=== PATIENT | male | born 1945 | race Caucasian/White ===

== ENCOUNTER 2016-11-02 05:04 | Inpatient (IN) | payer OTHER ==
[2016-11-02] MEDS ORDERED: HYDROmorphONE/DILAUDID 1 MG/ML SYR IVP ONE ×2 (05:27→06:57)
[2016-11-02] MEDS ORDERED: ONDANSETRON 4 MG/2 ML VIAL IVP ONE (05:27)
[2016-11-02] MEDS ORDERED: NS 1,000 ML IV ONE ×2 (05:27→06:57)
--- NOTE | 2016-11-02 05:27 | CPEKG ---
Heart Rate: 58 RR Interval: 1034 P-R Interval: 180 QRSD Interval: 94 QT Interval: 472 QTC Interval: 464 P Wheeler: 39 QRS Wheeler: -41 T Wave Wheeler: 34 EKG Severity - ABNORMAL ECG - EKG Impression: SINUS RHYTHM EKG Impression: LEFT ANTERIOR FASCICULAR BLOCK EKG Impression: BORDERLINE T WAVE ABNORMALITIES Electronically Signed By: Dorcas Jara 02-Nov-2016 07:20:19
--- NOTE | 2016-11-02 05:32 | EDPHY ---
H & P Stated Complaint: abd pain-chest pain Time Seen by Provider: 11/02/16 05:13 HPI/ROS: HPI The patient presents with abdominal pain which began yesterday at about 430p while playing golf. He could not complete his golf game and went home. The pain started gradually and was diffuse throughout his abdomen. It was a pressure like sensation with bloating, it was associated with weakness and nausea. The pain improved at about 7-8 p.m. at night and he went to bed. He woke at about 230 this morning with continued pain which began to radiate upwards toward his chest. The pain is been constant ever since. He had a normal bowel movement last night. He has not had any dark or bloody stools, diarrhea or constipation. He has not had any fevers or chills, he does not have any sick contacts. He has been taking Advil approximately 400 mg a day for the last 1 month. He reports that he has had an unintentional weight loss over the last 1 month as well. He has no history of similar pain. REVIEW OF SYSTEMS Constitutional: No fever, no chills. Eyes: No discharge. ENT: No sore throat. Cardiovascular: No chest pain, no palpitations. Respiratory: No cough, no shortness of breath. Gastrointestinal: See HPI Genitourinary: No hematuria. Musculoskeletal: No back pain. Skin: No rashes. Neurological: No headache. 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: Father with Marfan's and AAA PHYSICAL General Appearance: Alert, no distress Eyes: Pupils equal and round no pallor or injection ENT, Mouth: Mucous membranes moist Respiratory: There are no retractions, lungs are clear to auscultation Cardiovascular: Regular rate and rhythm Gastrointestinal: Abdomen is soft with tenderness in the epigastrium with voluntary guarding Neurological: A&O, moves all extremities Skin: Warm and dry, no rashes Musculoskeletal: Neck is supple non tender Extremities: symmetrical, full range of motion Psychiatric: Patient is oriented X 3, there is no agitation Source: Patient Exam Limitations: No limitations - Personal History Current Tetanus Diphtheria and Acellular Pertussis (TDAP): Yes - Medical/Surgical History Hx Asthma: No Hx Chronic Respiratory Disease: No Hx Diabetes: No Hx Cardiac Disease: No Hx Renal Disease: No Hx Cirrhosis: No Hx Alcoholism: No Hx HIV/AIDS: No Hx Splenectomy or Spleen Trauma: No Other PMH: hypertension - Social History Smoking Status: Never smoked Constitutional: Initial Vital Signs Temperature (C) 36.3 C 11/02/16 05:08 Heart Rate 61 11/02/16 05:08 Respiratory Rate 20 11/02/16 05:08 Blood Pressure 133/90 H 11/02/16 05:08 O2 Sat (%) 94 11/02/16 05:08 O2 Delivery Mode Room Air Allergies/Adverse Reactions: No Allergies [NKDA] Allergy (Verified 11/02/16 05:06) Home Medications: Medication Instructions Recorded Hydrochlorothiazide [HCTZ (*)] 25 mg PO DAILY 01/26/16 Lovastatin 20 mg PO DAILY 01/26/16 Spironolactone [Aldactone 25 MG 25 mg PO DAILY 01/26/16 (*)] Cholecalciferol Vit D3 [Vitamin D3 2,000 units PO DAILY 11/02/16 2000 units tab (OTC)] Vitamin B Complex [B Complex] 1 each PO DAILY 11/02/16 Medical Decision Making - Diagnostics EKG Interpretation: EKG: Complete interpretation has been separately recorded in the [facility] archive. Summary impression: Left anterior fascicular block Imaging: Imaging Impressions Chest X-Ray 11/02/16 05:27 Impression: 1. Stable chest. 2. Query constipation CT chest abdomen pelvis with IV contrast demonstrates some inflammation surrounding the pancreas, otherwise normal, discussed with Dr. La of Radiology. Chest x-ray two views shows ectatic aorta, interpreted by me, radiology interpretation is pending. ED Course/Re-evaluation: 6:50 a.m.- The patient is feeling somewhat better after fluids and pain medication. Labs have revealed a markedly elevated lipase. His CT scan also show some inflammation surrounding the pancreas. The cause of his pancreatitis is unclear. He is not a heavy drinker, drinking approximately 1-2 drinks of alcohol a day normally. He is not on any new medications except for niacinamide. He has no history of hypertriglyceridemia. He did not have any gallstones on his CT scan. I have discussed the case with Dr. Ziggy Mchugh of the hospitalist service and we plan to admit him to a medical-surgical bed. Differential Diagnosis: This is a 70-year-old man with hypertension who presents from home with epigastric abdominal pain which is radiating upwards toward his chest present for the last 12 hours approximately. On exam, he is slightly hypertensive with tenderness of his epigastrium. Differential diagnosis includes aortic dissection, perforated gastric ulcer, gastritis, pancreatitis, cholecystitis. - Data Points Laboratory Results: Laboratory Results 11/02/16 05:25 11/02/16 05:25 11/02/16 11/02/16 05:25 05:25 WBC 11.92 10^3/uL H 10^3/uL (3.80-9.50) RBC 4.66 10^6/uL 10^6/uL (4.40-6.38) Hgb 14.4 g/dL g/dL (13.7-17.5) Hct 40.9 % % (40.0-51.0) MCV 87.8 fL fL (81.5-99.8) MCH 30.9 pg pg (27.9-34.1) MCHC 35.2 g/dL g/dL (32.4-36.7) RDW 12.6 % % (11.5-15.2) Plt Count 230 10^3/uL 10^3/uL (150-400) MPV 9.1 fL fL (8.7-11.7) Neut % (Auto) 69.6 % % (39.3-74.2) Lymph % (Auto) 16.1 % % (15.0-45.0) [place] % (Auto) 11.5 % % (4.5-13.0) Eos % (Auto) 1.9 % % (0.6-7.6) Baso % (Auto) 0.6 % % (0.3-1.7) Nucleat RBC Rel Count 0.0 % % (0.0-0.2) Absolute Neuts (auto) 8.30 10^3/uL H 10^3/uL (1.70-6.50) Absolute Lymphs (auto) 1.92 10^3/uL 10^3/uL (1.00-3.00) Absolute Monos (auto) 1.37 10^3/uL H 10^3/uL (0.30-0.80) Absolute Eos (auto) 0.23 10^3/uL 10^3/uL (0.03-0.40) Absolute Basos (auto) 0.07 10^3/uL 10^3/uL (0.02-0.10) Absolute Nucleated RBC 0.00 10^3/uL 10^3/uL (0-0.01) Immature Gran % 0.3 % % (0.0-1.1) Immature Gran # 0.03 10^3/uL 10^3/uL (0.00-0.10) Sodium 137 mEq/L mEq/L (134-144) Potassium 3.7 mEq/L mEq/L (3.5-5.2) Chloride 104 mEq/L mEq/L (97-110) Carbon Dioxide 24 mEq/l mEq/l (22-31) Anion Gap 9 mEq/L mEq/L (8-16) BUN 24 mg/dL H mg/dL (7-23) Creatinine 1.2 mg/dL mg/dL (0.7-1.3) Estimated GFR 60 Glucose 99 mg/dL mg/dL (70-100) Calcium 9.2 mg/dL mg/dL (8.5-10.4) Total Bilirubin 0.9 mg/dL mg/dL (0.1-1.4) Conjugated Bilirubin 0.4 mg/dL mg/dL (0.0-0.5) Unconjugated Bilirubin 0.5 mg/dL mg/dL (0.0-1.1) AST 55 IU/L IU/L (17-59) ALT 54 IU/L IU/L (21-72) Alkaline Phosphatase 59 IU/L IU/L (38-126) Troponin I < 0.012 ng/mL ng/mL (0-0.034) Total Protein 7.0 g/dL g/dL (6.3-8.2) Albumin 4.3 g/dL g/dL (3.5-5.0) Lipase > 67656.0 IU/L H IU/L (23-300) Medications Given: Discontinued Medications Hydromorphone HCl (Dilaudid) 0.5 mg IVP EDNOW ONE Stop: 11/02/16 05:28 Last Admin: 11/02/16 06:05 Dose: 0.5 mg Sodium Chloride (Ns) 1,000 mls @ 0 mls/hr IV ONCE ONE PRN Reason: Wide Open Stop: 11/02/16 05:28 Last Admin: 11/02/16 06:05 Dose: 1,000 mls Sodium Chloride (Ns) 1,000 mls @ 0 mls/hr IV ONCE ONE PRN Reason: Wide Open Stop: 11/02/16 06:58 Last Admin: 11/02/16 07:03 Dose: 1,000 mls Ondansetron HCl (Zofran) 4 mg IVP EDNOW ONE Stop: 11/02/16 05:28 Last Admin: 11/02/16 05:50 Dose: 4 mg Departure - Departure Disposition: [facility] Inpatient Acute Clinical Impression: Pancreatitis Condition: Fair
[2016-11-02 05:33] LABS: % IMMATURE GRANULYOCYTES 0.3 % (0.0-1.1); ABSOLUTE IMMATURE GRANULOCYTES 0.03 10^3/uL (0.00-0.10); ADD DIFF? NO; ADD MORPH? NO; ADD SCAN? NO; ATYPICAL LYMPHOCYTE FLAG 0 (0-99); FRAGMENT RBC FLAG 0 (0-99); HEMATOCRIT 40.9 % (40.0-51.0); HEMOGLOBIN 14.4 g/dL (13.7-17.5); LEFT SHIFT FLG 0 (0-99); LIPEMIA HEMOLYSIS FLAG 90 (0-99); MEAN CELL HEMOGLOBIN 30.9 pg (27.9-34.1); MEAN CELL HEMOGLOBIN CONCENTR. 35.2 g/dL (32.4-36.7); MEAN CELL VOLUME 87.8 fL (81.5-99.8); MEAN PLATELET VOLUME 9.1 fL (8.7-11.7); PLATELET CLUMPS FLAG 0 (0-99); PLATELET COUNT 230 10^3/uL (150-400); RED BLOOD CELL COUNT 4.66 10^6/uL (4.40-6.38); RED CELL DISTRIBUTION WIDTH 12.6 % (11.5-15.2)
[2016-11-02] MEDS ORDERED: IOPAMIDOL (ISOVUE-300) 100 ML BTL IV ONE (05:39)
[2016-11-02 05:49] LABS: ALANINE AMINOTRANSFERASE 54 IU/L (21-72); ALBUMIN 4.3 g/dL (3.5-5.0); ALKALINE PHOSPHATASE 59 IU/L (38-126); ANION GAP 9 mEq/L (8-16); ASPARTATE AMINOTRANSFERASE 55 IU/L (17-59); BILIRUBIN,TOTAL 0.9 mg/dL (0.1-1.4); BILIRUBIN-CONJUGATED 0.4 mg/dL (0.0-0.5); BILIRUBIN-UNCONJUGATED 0.5 mg/dL (0.0-1.1); CALCIUM 9.2 mg/dL (8.5-10.4); CARBON DIOXIDE 24 mEq/l (22-31); CHLORIDE 104 mEq/L (97-110); CREATININE 1.2 mg/dL (0.7-1.3); GLOMERULAR FILTRATION RATE 60; GLUCOSE 99 mg/dL (70-100); POTASSIUM 3.7 mEq/L (3.5-5.2); SODIUM 137 mEq/L (134-144)
[2016-11-02 06:01] LABS: TROPONIN I < 0.012 ng/mL (0-0.034)
--- NOTE | 2016-11-02 07:51 | PDGENHP ---
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 Pain started gradually yesterday. He played some golf when he felt tired. Around 5:00 p.m. he developed some mild dull epigastric generalized abdominal pain that did not radiate. Initially thought he was getting the stomach flu. He did not have much of an appetite but was eventually able to be dinner. He was then awoke in a from sleep with severe generalized abdominal pain which brought him to the emergency department for further evaluation. He denies any nausea vomiting or diarrhea. He has been losing weight over the past few months but is unable to quantify how much. He denies any fevers or chills. He endorses to drinking 1 oz of hard alcohol per night which she is on for many years. He denies any new medication, but does take supplements. Triglycerides were tested last month and found to be within normal range at 90. History Information - Allergies/Home Medication List Allergies/Adverse Reactions: No Allergies [NKDA] Allergy (Verified 11/02/16 05:06) Home Medications: Cardura 01/26/16 [Last Taken Unknown] Lovastatin 01/26/16 [Last Taken Unknown] Spironolactone-Hctz 25-25 Tab 01/26/16 [Last Taken Unknown] Cholecalciferol Vit D3 [Vitamin D3 2000 units tab (OTC)] 2,000 units PO DAILY [Last Taken Unknown] Vitamin B Complex [B Complex] 1 each PO DAILY 11/02/16 [Last Taken Unknown] I have personally reviewed and updated: family history, medical history, social history, surgical history - Past Medical History Additional medical history: basal cell carcinoma, BPH, hypertension, bradycardia , depression, peripheral neuropathy, retinal detachment, gastritis - Surgical History Additional surgical history: bilateral total knee arthroplasties, bilateral hernia repair, cervical fusion - Family History Additional family history: Marfan syndrome in his father - Social History Smoking Status: Never smoked Alcohol Use: Other (1-2 oz of hard alcohol per nights) Drug Use: None Review of Systems ROS: 10pt was reviewed & negative except for what was stated in HPI & below Physical Exam Temp Pulse Resp BP Pulse Ox 36.3 C 58 L 12 141/88 H 99 11/02/16 05:08 11/02/16 06:20 11/02/16 06:20 11/02/16 06:20 11/02/16 06:20 Constitutional: no apparent distress, appears nourished, not in pain Eyes: PERRL, anicteric sclera, EOMI Ears, Nose, Mouth, Throat: moist mucous membranes, hearing normal, ears appear normal, no oral mucosal ulcers Cardiovascular: regular rate and rhythym, no murmur, rub, or gallop, No edema Respiratory: no respiratory distress, no rales or rhonchi, clear to auscultation Gastrointestinal: normoactive bowel sounds, soft, non-tender abdomen, no palpable masses, No guarding, No rebound Genitourinary: no bladder fullness, no bladder tenderness Skin: warm, normal color, no rashes or abrasions, no fluctuance, no induration, No mottled Musculoskeletal: full muscle strength, no muscle tenderness, normal joint ROM, no joint effusions Neurologic: AAOx3, CN II-XII Intact, No facial droop Psychiatric: interacting appropriately, not anxious, not encephalopathic, thought process linear Lymph, Heme, Immunologic: no cervical LAD, no supraclavicular LAD Lab Data & Imaging Review 11/02/16 05:25 11/02/16 05:25 WBC 11.92 10^3/uL (3.80-9.50) H 11/02/16 05:25 RBC 4.66 10^6/uL (4.40-6.38) 11/02/16 05:25 Hgb 14.4 g/dL (13.7-17.5) 11/02/16 05:25 Hct 40.9 % (40.0-51.0) 11/02/16 05:25 MCV 87.8 fL (81.5-99.8) 11/02/16 05:25 MCH 30.9 pg (27.9-34.1) 11/02/16 05:25 MCHC 35.2 g/dL (32.4-36.7) 11/02/16 05:25 RDW 12.6 % (11.5-15.2) 11/02/16 05:25 Plt Count 230 10^3/uL (150-400) 11/02/16 05:25 MPV 9.1 fL (8.7-11.7) 11/02/16 05:25 Neut % (Auto) 69.6 % (39.3-74.2) 11/02/16 05:25 Lymph % (Auto) 16.1 % (15.0-45.0) 11/02/16 05:25 [place] % (Auto) 11.5 % (4.5-13.0) 11/02/16 05:25 Eos % (Auto) 1.9 % (0.6-7.6) 11/02/16 05:25 Baso % (Auto) 0.6 % (0.3-1.7) 11/02/16 05:25 Nucleat RBC Rel Count 0.0 % (0.0-0.2) 11/02/16 05:25 Absolute Neuts (auto) 8.30 10^3/uL (1.70-6.50) H 11/02/16 05:25 Absolute Lymphs (auto) 1.92 10^3/uL (1.00-3.00) 11/02/16 05:25 Absolute Monos (auto) 1.37 10^3/uL (0.30-0.80) H 11/02/16 05:25 Absolute Eos (auto) 0.23 10^3/uL (0.03-0.40) 11/02/16 05:25 Absolute Basos (auto) 0.07 10^3/uL (0.02-0.10) 11/02/16 05:25 Absolute Nucleated RBC 0.00 10^3/uL (0-0.01) 11/02/16 05:25 Immature Gran % 0.3 % (0.0-1.1) 11/02/16 05:25 Immature Gran # 0.03 10^3/uL (0.00-0.10) 11/02/16 05:25 Sodium 137 mEq/L (134-144) 11/02/16 05:25 Potassium 3.7 mEq/L (3.5-5.2) 11/02/16 05:25 Chloride 104 mEq/L (97-110) 11/02/16 05:25 Carbon Dioxide 24 mEq/l (22-31) 11/02/16 05:25 Anion Gap 9 mEq/L (8-16) 11/02/16 05:25 BUN 24 mg/dL (7-23) H 11/02/16 05:25 Creatinine 1.2 mg/dL (0.7-1.3) 11/02/16 05:25 Estimated GFR 60 11/02/16 05:25 Glucose 99 mg/dL (70-100) 11/02/16 05:25 Calcium 9.2 mg/dL (8.5-10.4) 11/02/16 05:25 Total Bilirubin 0.9 mg/dL (0.1-1.4) 11/02/16 05:25 Conjugated Bilirubin 0.4 mg/dL (0.0-0.5) 11/02/16 05:25 Unconjugated Bilirubin 0.5 mg/dL (0.0-1.1) 11/02/16 05:25 AST 55 IU/L (17-59) 11/02/16 05:25 ALT 54 IU/L (21-72) 11/02/16 05:25 Alkaline Phosphatase 59 IU/L (38-126) 11/02/16 05:25 Troponin I < 0.012 ng/mL (0-0.034) 11/02/16 05:25 Total Protein 7.0 g/dL (6.3-8.2) 11/02/16 05:25 Albumin 4.3 g/dL (3.5-5.0) 11/02/16 05:25 Lipase > 03802.0 IU/L (23-300) H 11/02/16 05:25 Visualized and Interpreted Chest x-ray results: Yes Chest X-Ray results: normal, normal heart size Visualized and Interpreted EKG results: Yes EKG Interpretation: Positive for: normal sinsus rhythm ( 58 beats per minute) Assessment & Plan Assessment: 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 The final read is pending but the initial read revealed pancreatic inflammation. His LFTs are normal which would go against gallstones. I will order abdominal ultrasound to further assess the biliary system since this is a better tests look for stones than a CT scan. IV fluids will be continue to ensure adequate perfusion of the pancreas. Will order IV Dilaudid and antiemetics as needed for pain and nausea. # history of hypertension with elevated blood pressure - monitor and treat with blood pressure medications as indicated disposition: Admit to inpatient status
[2016-11-02] MEDS ORDERED: NS 1,000 ML IV SCH (08:00)
[2016-11-02] MEDS ORDERED: ACETAMINOPHEN 325 MG TAB PO PRN (08:00)
[2016-11-02] MEDS ORDERED: ONDANSETRON 4 MG/2 ML VIAL IVP PRN (08:00)
[2016-11-02] MEDS ORDERED: oxyCODONE IR 5 MG TAB PO PRN (08:00)
[2016-11-02] MEDS ORDERED: HYDROmorphONE/DILAUDID 2 MG/ML INJ IVP PRN (08:00)
[2016-11-02 08:15] VITALS: RESP 16
[2016-11-02] MEDS ORDERED: ENOXAPARIN 40 MG/0.4 ML SYR SC SCH (09:00)
[2016-11-02 09:30] LABS: COLOR YELLOW; LEUKOCYTE ESTERASE,URINE NEGATIVE (NEGATIVE); NITRITE,URINE NEGATIVE (NEGATIVE)
[2016-11-02] MEDS ORDERED: HYDROCODONE/APAP 5/325 TAB PO PRN ×2 (10:43→10:45)
--- NOTE | 2016-11-02 10:49 | HOSPPROG ---
Hospitalist Progress Note Assessment/Plan: # Acute pancreatitis -etiology unclear - CT abd (personally reviewed and interpreted) with pancreatic inflammation no clear stones lipas >19648 patient tolerating liquid intake - will start PO norco prn - cont IVF until PO adequate - US abdomen ordered toe valuate for stones - holding HCTZ as has association with pancreatitis # HTN - SBP in 150's on admit - restart home spironolactone - hold HCTZ # Acute Leukocytosis - 11 on admit suspect 2/2 pancreatitis - UA normal oxygen saturation 95% on RA - cont to follow with supportive care # prophylaxis - lovenox # diet - clear liquids # dispo - > 2 MN as presenting with acute pancreatitis - requiring IV pain meds on admit will need advancement of diet and diagnostics I have discussed the case with RN - we will monitor PO intake and adjust IVF accordingly Subjective: pain improved with meds in ER Objective: Vital Signs Temp Pulse Resp BP Pulse Ox 36.7 C 59 L 16 149/53 H 95 11/02/16 08:13 11/02/16 08:13 11/02/16 08:13 11/02/16 08:13 11/02/16 08:13 - Physical Exam Constitutional: appears nourished Eyes: anicteric sclera Ears, Nose, Mouth, Throat: moist mucous membranes Cardiovascular: regular rate and rhythym Respiratory: no respiratory distress Gastrointestinal: normoactive bowel sounds, tenderness, rebound Genitourinary: no bladder fullness Skin: warm, normal color Musculoskeletal: No asymmetric calves Neurologic: AAOx3 Psychiatric: interacting appropriately, not anxious Lymph, Heme, Immunologic: no cervical LAD ICD10 Worksheet Patient Problems: Problems Problem Status Onset Pancreatitis Acute
[2016-11-02] MEDS ORDERED: SPIRONOLACTONE 25 MG TAB PO SCH (11:00)
[2016-11-02 15:56] VITALS: BP 141/97; PULSE 70; TEMP 98; O2SAT 96
--- NOTE | 2016-11-02 17:28 | GDS ---
[f rep st] DISCHARGE SUMMARY DISCHARGE DIAGNOSES: 1. Acute pancreatitis, etiology unclear. 2. Hypertension. 3. Acute leukocytosis. HISTORY OF PRESENT ILLNESS: A 70-year-old male with a history of hypertension on hydrochlorothiazid e and spironolactone, who had sudden onset of epigastric abdominal discomfort. The patient presente d to the ED, and had a lipase greater than 20,000. For details of the patient's initial presentatio n, please see the history and physical dated 11/02/2016. CONSULTATIVE SERVICES: None. PROCEDURES: 1. On 11/02/2016, patient had a CT of the abdomen which showed pancreatitis with regional linda panc reatic edema and stranding. No cholelithiasis, biliary dilatation, or evidence of common bile duct stone. 2. On 11/02/2016, patient had a CT of the chest which showed minimally dilated ascending aorta. No acute dissection and no acute pulmonary process. 3. On 11/02/2016, patient had an ultrasound of the abdomen, which showed no cholelithiasis or bilia ry dilatation. The hepatic cyst is noted. HOSPITAL COURSE: 1. Acute pancreatitis. Patient had markedly elevated lipase with corresponding epigastric abdomina l pain. He reports 2 ounces of alcohol intake daily, and denies any preceding history of pancreatit is. Reports he has been a hydrochlorothiazide for an extended period of time without preceding symp toms. All imaging confirms no presence of cholelithiasis or ductal abnormalities. I have some conc mitchell the patient may not be being truthful about his alcohol intake and this could be an underlying c ontributor to his initial presentation, or were are seeing a late presentation of hydrochlorothiazid e related pancreatitis. Additionally possible, are microliths not being well on imaging modalities in the emergency department. At this time, the patient is insisting on returning home. He is being discharged with oral pain medications and recommendations to continue clear liquids as tolerated. I have concern that the patient is not going to be able to maintain himself at home. We have reques segundo that he present to his PCP either tomorrow or the day following for his first post disposition f ollowup. If the patient has recurrent symptoms, I would recommend that he have MRCP to rule out uziel roliths for other possible contributors for pancreatitis. 2. Hypertension. Patient did have elevated blood pressures while in the hospital. We will continu e spironolactone. I suspect this will require up titration as we have discontinued hydrochlorothiaz martin at disposition. Again we have asked that he follow with his primary care provider in the next 2 4-48 hours. MEDICATIONS AT THE TIME OF TRANSFER: Please reference medication reconciliation printed on 11/03/19 17. PENDING STUDIES: At the time of this dictation are none. FOLLOWUP APPOINTMENTS: Include with his primary care provider in the next 24-48 hours. It should be noted that the patient is asking for disposition prior to when we feel is appropriate. We are not asking him to sign out against medical advice but are concerned about his potential succ ess at home treating pancreatitis with clear liquids, and only oral pain medication. TIME SPENT: I spent greater than 30 minutes in the planning and coordination of this disposition. /[id number]/MODL
[2016-11-03] MEDS ORDERED: VITAMIN B COMPLEX 1 EA CAP/TAB PO SCH (09:00)
[2016-11-03] MEDS ORDERED: NON-FORMULARY NEW DRUG (Lovastatin [Lovastatin] 20 MG) PO SCH (09:00)
[2016-11-03] MEDS ORDERED: CHOLECALCIFEROL VIT D3 2,000 UNITS TAB/CAP PO SCH (09:00)
[2016-11-03] MEDS ORDERED: PRAVASTATIN SODIUM 20 MG TAB PO SCH (09:00)
== END 2016-11-02 17:36 | disposition home or self-care (01) | DRG 440 ==
LOC: F1N 07:58 → OBSVTOIN 08:02
PROVIDERS: ADMIT Family Medicine; ATTEND Hospitalist
DX: K85.00 Idiopathic acute pancreatitis without necrosis or infection (principal); I10 Essential (primary) hypertension; D72.829 Elevated white blood cell count, unspecified; Z98.1 Arthrodesis status; Z96.653 Presence of artificial knee joint, bilateral
CPT/HCPCS: 96374; J1170; J2405; Q9967

== ENCOUNTER 2016-12-05 11:13 | Day surgery (SDC) | payer OTHER ==
[2016-12-05] MEDS ORDERED: LIDOCAINE 1% 2 ML INJ ONE (11:39)
[2016-12-05] MEDS ORDERED: fentaNYL 100 MCG/2 ML INJ ONE (13:25)
[2016-12-05] MEDS ORDERED: PROPOFOL/EMULSION 500 MG/50 ML BOTTLE IV ONE (13:26)
[2016-12-05] MEDS ORDERED: LIDOCAINE 2% 100 MG/5 ML SYR ONE (13:27)
[2016-12-05] MEDS ORDERED: DEXAMETHASONE 4 MG/ML VIAL ONE (13:27)
[2016-12-05] MEDS ORDERED: ONDANSETRON 4 MG/2 ML VIAL ONE (13:27)
[2016-12-05] MEDS ORDERED: PROPOFOL 200 MG/20 ML VIAL ONE ×3 (13:55→14:20)
--- NOTE | 2016-12-06 02:01 | GPN ---
[f rep st] PROCEDURE NOTE DATE OF PROCEDURE: 12/05/2016 PROCEDURE: 1. Esophagogastroduodenoscopy with biopsy. 2. Endoscopic ultrasound. INDICATION: The patient is a 71-year-old male who presents for evaluation of pancreatitis as well as ongoing epigastric abdominal pain. He presents for further evaluation. CONSENT: Risks, benefits, and alternatives of the procedure were discussed in great detail with the patient. Risks of infection, bleeding, perforation, and sedation were discussed. All questions answered and informed consent was obtained. MEDICATIONS: Propofol. Please see Anesthesiology report for details. ESTIMATED BLOOD LOSS: Insignificant. ESOPHAGOGASTRODUODENOSCOPY EXAMINATION: The Olympus upper endoscope was introduced into the mouth and advanced to the esophagus. The proximal, mid, and distal esophagus were normal in appearance. The stomach was entered and closely examined, including retroflexed views of angularis, cardia, and fundus. The patient was noted to have a small hiatal hernia. The mucosa of the antrum and body was erythematous in a patchy distribution. Biopsies taken. There were several sessile diminutive polyps noted in the fundus as well as greater curvature, and biopsies were taken. The duodenal bulb and second portion of the duodenum were normal in appearance. ENDOSCOPIC ULTRASOUND EXAMINATION: The Olympus linear echoendoscope was introduced into the mouth and advanced to the second portion of the duodenum. The pancreas carefully examined from the uncinate process to the tail, where the spleen was seen. The patient had multiple dilated side branches throughout the pancreas as well as hyperechoic foci throughout the pancreas. The pancreatic duct wall was hyperechoic. The main pancreatic duct was not dilated and measured 2 mm in the body. The gallbladder was seen without stone or debris. The common bile duct was seen without stone, without stricture, or stenosis. No suspicious periportal, peripancreatic, or perigastric nodes were appreciated. No obvious liver abnormalities were noted. IMPRESSION: 1. Parenchymal changes in the pancreas. 2. Gastritis, status post biopsy. 3. Gastric polyps, status post biopsies. RECOMMENDATIONS: 1. Follow up on biopsy results 2. Proceed with colonoscopy. 3. Follow up in office as needed. /[id number]/MODL MTDD
--- NOTE | 2016-12-06 02:21 | GPN ---
[f rep st] PROCEDURE NOTE DATE OF PROCEDURE: 12/05/2016 PROCEDURE: Colonoscopy with biopsy. INDICATION: The patient is a 71-year-old male with a personal history of polyps who presents for surveillance colonoscopy. CONSENT: Risks, benefits, and alternatives of the procedure were discussed in great detail with the patient. Risks of infection, bleeding, perforation, and sedation were discussed. All questions answered. Informed consent obtained. MEDICATIONS: Propofol. Please see Anesthesia record for details. ESTIMATED BLOOD LOSS: Insignificant. COLONOSCOPIC EVALUATION: A rectal exam was performed and no palpable mass felt. The Olympus adult colonoscope was introduced into the rectum and advanced to the cecum, where the ileocecal valve and appendiceal orifice were seen. The quality of the prep was good. The colonic mucosa was carefully examined on both insertion and withdrawal of the scope. In the ascending colon, a 4 mm flat polyp was seen and removed by biopsy forceps. In the sigmoid colon, a few diverticula were noted. IMPRESSION: 1. Ascending colon polyp, status post excisional biopsy. 2. Sigmoid diverticulosis. RECOMMENDATIONS: 1. Follow up the biopsy results. 2. Repeat colonoscopy in 5 years. 3. Fiber supplementation. /[id number]/MODL MTDD
== END 2016-12-05 16:00 | disposition home or self-care (01) ==
LOC: FSGY 11:13
PROVIDERS: ATTEND Internal Medicine Gastroenterology
PROC: 0DBK8ZX Excision of Ascending Colon, Via Natural or Artificial Opening Endoscopic, Diagnostic (ICD-10-PCS; principal; 2016-12-05 12:45)
PROC: 0DB68ZX Excision of Stomach, Via Natural or Artificial Opening Endoscopic, Diagnostic (ICD-10-PCS; principal; 2016-12-05 12:45)
DX: K85.00 Idiopathic acute pancreatitis without necrosis or infection (principal); I10 Essential (primary) hypertension; E78.5 Hyperlipidemia, unspecified; D12.4 Benign neoplasm of descending colon; Z86.010 Personal history of colon polyps; N28.9 Disorder of kidney and ureter, unspecified; K29.70 Gastritis, unspecified, without bleeding; K57.30 Diverticulosis of large intestine without perforation or abscess without bleeding
CPT/HCPCS: J1100; J2001; J2405; J2704; J3010

== ENCOUNTER 2016-12-12 15:08 | Emergency (ER) | payer OTHER ==
[2016-12-12 15:14] VITALS: RESP 16; TEMP 97.7
--- NOTE | 2016-12-12 15:26 | EDPHY ---
H & P Time Seen by Provider: 12/12/16 15:21 HPI/ROS: CHIEF COMPLAINT: Puncture wound HISTORY OF PRESENT ILLNESS: This is a 71-year-old male presenting to the emergency department complaining of puncture wound to the bottom of his left foot. Patient states it happened about 1 hour ago, patient not sure if he stepped on a piece of metal or wood while wearing his croc which the object punctured his croc then his foot. Patient states not sure if there is a fragment left in his foot or not. Denies any other complaints REVIEW OF SYSTEMS: Constitutional: No fever, no chills. Eyes: No discharge. Cardiovascular: No chest pain, no palpitations. Respiratory: no shortness of breath. Gastrointestinal: No abdominal pain, no vomiting. Musculoskeletal: Left foot pain puncture wound Skin: No rashes. Neurological: No headache. Smoking Status: Never smoked Physical Exam: General Appearance: Alert, no distress. Eyes: no pallor or injection. Respiratory: There are no retractions, nonlabored respiratory effort Cardiovascular: Regular rate and rhythm. Neurological: No focal deficits. Ambulatory with antalgic gait Skin: Warm and dry, no rashes. Musculoskeletal: Neck is supple nontender. Left plantar puncture wound Extremities: symmetrical, full range of motion. Psychiatric: Patient is oriented X 3, there is no agitation. Constitutional: Initial Vital Signs Temperature (C) 36.5 C 12/12/16 15:12 Heart Rate 64 12/12/16 15:12 Respiratory Rate 16 12/12/16 15:12 Blood Pressure 132/91 H 12/12/16 15:12 O2 Sat (%) 96 12/12/16 15:12 O2 Delivery Mode Room Air Allergies/Adverse Reactions: No Allergies [NKDA] Allergy (Verified 12/12/16 15:11) Home Medications: Medication Instructions Recorded RX: Lovastatin 01/26/16 RX: Spironolactone [Aldactone 25 01/26/16 MG (*)] RX: Cholecalciferol Vit D3 11/02/16 [Vitamin D3 2000 units tab (OTC)] Medical Decision Making - Diagnostics Imaging Results: Imaging Impressions Foot X-Ray 12/12/16 15:26 Impression: Soft tissue swelling over the distal lateral forefoot, with no radiopaque foreign body or acute osseous abnormality identified. ED Course/Re-evaluation: Discussed the plan of care: X-ray of foot to rule out any foreign body, wound irrigation 1600: No foreign body seen on x-ray, re-evaluated wound after irrigation. No obvious foreign body noted, area nontender on palpate. Bacitracin with dressing placed on wound. Discussed discharge instructions with patient, discharge home---> stable. Differential Diagnosis: Other differential diagnosis considered but not limited to soft tissue foreign body, cellulitis, and fracture Departure - Departure Disposition: Home, Routine, Self-Care Clinical Impression: Puncture wound of foot without foreign body Qualifiers: Encounter type: initial encounter Laterality: left Qualified Code(s): S91.332A - Puncture wound without foreign body, left foot, initial encounter Condition: Good Instructions: Puncture Wound (ED) Additional Instructions: Discussed discharge instructions 1. I recommend wearing shoes with a thicker sole when outside doing yard work 2. X-rays were negative for any foreign body, but an object may not always show up on xray. Monitor for any signs of infection, such as: increased redness, red streaking. Or if you feel any objects protruding from the puncture wound return here or go to your primary care doctor to have it removed. You do not want to be picking or prodding into an open wound on the foot 3. Elevate foot as needed. Keep covered with Band-Aid to decrease any environmental exposure that may increase chances of infection. Referrals: Francisco Sofia, [Primary Care Provider] - As per Instructions
[2016-12-12 16:13] VITALS: BP 125/88; PULSE 55; O2SAT 98
== END 2016-12-12 16:16 | disposition home or self-care (01) ==
DX: S91.332A Puncture wound without foreign body, left foot, initial encounter (principal); W22.8XXA Striking against or struck by other objects, initial encounter